=== PATIENT | male | born 1985 | race Caucasian/White ===

== ENCOUNTER 2016-12-10 12:00 | Emergency (ER) | payer MEDICAID ==
[2016-12-10] MEDS ORDERED: KETOROLAC 30 MG/ML VIAL ONE (13:27)
== END 2016-12-10 15:40 | disposition home or self-care (01) ==
LOC: ER 12:00
DX: R07.89 Other chest pain (principal)
CPT/HCPCS: 36415; 71010; 80053; 82550; 83735; 84484; 85025; 85610; 85730; 93005; 96374